=== PATIENT | female | born 1995 | race Caucasian/White ===

== ENCOUNTER 2023-03-08 17:16 | Emergency (ER) | payer OTHER, SELFPAY ==
[2023-03-08] MEDS ORDERED: Ibuprofen 200 MG TAB ONE (18:33)
[2023-03-08] MEDS ORDERED: predniSONE 20 MG TAB ONE (19:18)
== END 2023-03-08 19:26 | disposition home or self-care (01) ==
LOC: NAV ERS 17:16
DX: B34.9 Viral infection, unspecified (principal); J32.0 Chronic maxillary sinusitis; F17.290 Nicotine dependence, other tobacco product, uncomplicated
CPT/HCPCS: 87804; 99283; J7512